=== PATIENT | female | born 1970 | race Caucasian/White ===

== ENCOUNTER 2018-04-17 06:56 | Inpatient (IN) | payer OTHER ==
[~2018-04-17] VITALS: Ht 160 cm; Wt 113.4 kg
[2018-04-17 01:50] VITALS: BP_SYST 140
[2018-04-17 07:03] VITALS: BP_SYST 210
[2018-04-17] MEDS ORDERED: NACL 0.9% 1,000 ML IV ONE ×2 (07:13→08:45)
[2018-04-17] MEDS ORDERED: ONDANSETRON HCL 4 MG/2 ML VIAL IVP ONE (07:15)
[2018-04-17] MEDS ORDERED: KETOROLAC TROMETHAMINE 30 MG VIAL IVP ONE (07:15)
[2018-04-17 08:03] LABS: HEMOGLOBIN 10.4 g/dL (12.0-16.0)
[2018-04-17 08:05] LABS: BASOPHILS # (AUTO) 0.3 K/uL (0.0-0.2); BASOPHILS % (AUTO) 1.9 % (0.0-2.0); EOSINOPHILS % (AUTO) 0.2 % (0.0-4.0); HEMATOCRIT 35.4 % (36-48); LYMPHOCYTES # (AUTO) 1.2 K/uL (1.0-5.5); LYMPHOCYTES % (AUTO) 6.6 % (20.5-51.5); MEAN CORPUSCULAR HEMOGLOBIN 19 pg (27-31); MEAN CORPUSCULAR HGB CONC 29 % (32-36); MEAN CORPUSCULAR VOLUME 64 fL (79.0-98.0); MONOCYTES # (AUTO) 0.9 K/uL (0.0-1.0); MONOCYTES % (AUTO) 5.2 % (1.7-9.3); NEUTROPHILS # (AUTO) 15.6 K/uL (1.8-7.7); NEUTROPHILS % (AUTO) 86.1 % (40.0-70.0); PLATELET COUNT (AUTO) 435 K/uL (130-430); RED BLOOD CELL COUNT(AUTO) 5.49 MIL/uL (4.2-6.2); RED CELL DISTRIBUTION WIDTH 17.7 % (9.0-15.0)
[2018-04-17 08:13] LABS: BARBITURATE, URINE NEGATIVE (NEG <=200); BENZODIAZEPINE, URINE NEGATIVE (NEG <=150); CANNABINOID, URINE NEGATIVE (NEG <=50); COCAINE, URINE NEGATIVE (NEG <=150); METHAMPHETAMINES SCREEN,URINE NEGATIVE (NEG <=500); OPIATE, URINE NEGATIVE (NEG <=100); PHENCYCLIDINE SCREEN,URINE NEGATIVE (NEG <=25); UR TRICYCLIC ANTIDEPRESSANTS NEGATIVE (NEG <=300); URINE AMPHETAMINE NEGATIVE (NEG <=500); URINE METHADONE NEGATIVE (NEG <=200); URINE OXYCODONE SCREEN NEGATIVE (NEG <=100); URINE PROPOXYPHENE SCREEN NEGATIVE (NEG <=300)
[2018-04-17 08:17] LABS: CALCIUM 8.8 mg/dL (8.4-11.0); CREATININE 0.92 mg/dL (0.55-1.30); POTASSIUM 3.8 mmol/L (3.5-5.1)
[2018-04-17 08:22] LABS: ALBUMIN 3.5 g/dL (3.4-4.8); TOTAL BILIRUBIN 0.7 mg/dL (0.0-1.0)
[2018-04-17] MEDS ORDERED: GLUC100017 PO (08:39)
[2018-04-17] MEDS ORDERED: cefTRIAXone 1 GM IVPB PREMIX 50 ML IV ONE (08:45)
[2018-04-17 08:48] LABS: BILIRUBIN,URINE NEGATIVE (NEGATIVE); CLARITY/URINE CLEAR (CLEAR); COLOR,URINE YELLOW (YELLOW); GLUCOSE,URINE NEGATIVE (NEGATIVE); KETONES,URINE NEGATIVE (NEGATIVE); LEUKOCYTE ESTERASE ,URINE TRACE (NEGATIVE); NITRITE, URINE NEGATIVE (NEGATIVE); PROTEIN URINE 1+ (NEGATIVE); UROBILINOGEN,URINE 0.2 (0.2-1.0)
[2018-04-17 08:49] LABS: BLOOD, URINE TRACE (NEGATIVE)
[2018-04-17 08:53] LABS: INR 1.1 (0.8-1.2); PROTHROMBIN TIME 11.5 SECS (9.5-12.5)
[2018-04-17 08:55] LABS: BACTERIA,URINE FEW /HPF (None Seen); MUCUS,URINE 1+ /LPF (None Seen)
[2018-04-17] MEDS ORDERED: ONDANSETRON HCL 4 MG/2 ML VIAL IVP PRN (10:15)
[2018-04-17 10:46] VITALS: BP_SYST 147
[2018-04-17 12:19] VITALS: BP_SYST 130
[2018-04-17 15:26] VITALS: BP_SYST 148
[2018-04-17 19:45] VITALS: BP_SYST 154
[2018-04-17] MEDS ORDERED: ENALAPRILAT DIHYDRATE 1.25 MG/ML VIAL IVP PRN (21:45)
[2018-04-17] MEDS ORDERED: PIPERACILLIN/TAZOBACTAM 4.5 GM/VIAL (ZOSYN) IV ONE (22:17)
[2018-04-17] MEDS: NACL 0.9% 1,000 ML IV SCH (22:27)
[2018-04-17] MEDS: PIPERACILLIN/TAZO 4.5GM/DEX-IS 100 ML IV SCH (22:35)
[2018-04-18] MEDS: ACETAMINOPHEN 325 MG TABLET PO PRN ×3 (01:50→21:03)
[2018-04-18 01:51] VITALS: BP_SYST 140
[2018-04-18] MEDS: PIPERACILLIN/TAZO 4.5GM/DEX-IS 100 ML IV SCH ×4 (04:19→21:03)
[2018-04-18 05:38] LABS: MEAN CORPUSCULAR HEMOGLOBIN 20 pg (27-31); MEAN CORPUSCULAR HGB CONC 31 % (32-36); MEAN CORPUSCULAR VOLUME 65 fL (79.0-98.0); PLATELET COUNT (AUTO) 330 K/uL (130-430); RED BLOOD CELL COUNT(AUTO) 4.45 MIL/uL (4.2-6.2); RED CELL DISTRIBUTION WIDTH 18.1 % (9.0-15.0)
[2018-04-18 06:05] LABS: ALBUMIN 2.5 g/dL (3.4-4.8); CREATININE 1.06 mg/dL (0.55-1.30); POTASSIUM 3.8 mmol/L (3.5-5.1)
[2018-04-18 06:52] LABS: CALCIUM 8.2 mg/dL (8.4-11.0)
[2018-04-18] MEDS: NACL 0.9% 1,000 ML IV SCH ×2 (06:58→17:56)
[2018-04-18 08:00] VITALS: BP_SYST 126
[2018-04-18] MEDS: PANTOPRAZOLE SODIUM 40 MG/VIAL (PROTONIX) IVP SCH (09:19)
[2018-04-18 11:18] LABS: BASOPHILS % (MANUAL) 0 % (0-2); EOSINOPHILS % (MANUAL) 0 % (0-7); LYMPHOCYTES % (MANUAL) 6 % (20-46); MONOCYTES % (MANUAL) 5 % (0-11)
[2018-04-18 11:25] VITALS: BP_SYST 135
[2018-04-18 15:25] VITALS: BP_SYST 126
[2018-04-18 20:00] VITALS: BP_SYST 141
[2018-04-19 00:56] VITALS: BP_SYST 127
[2018-04-19] MEDS: PIPERACILLIN/TAZO 4.5GM/DEX-IS 100 ML IV SCH ×4 (03:09→21:12)
[2018-04-19] MEDS: MORPHINE 2 MG/ML INJ. SYRINGE IVP PRN (03:14)
[2018-04-19] MEDS: NACL 0.9% 1,000 ML IV SCH ×3 (05:03→23:45)
[2018-04-19 06:54] LABS: BASOPHILS % (AUTO) 0.1 % (0.0-2.0); EOSINOPHILS # (AUTO) 0.1 K/uL (0.0-0.4); EOSINOPHILS % (AUTO) 0.7 % (0.0-4.0); HEMATOCRIT 26.8 % (36-48); HEMOGLOBIN 8.2 g/dL (12.0-16.0); LYMPHOCYTES # (AUTO) 1.2 K/uL (1.0-5.5); LYMPHOCYTES % (AUTO) 6.2 % (20.5-51.5); MEAN CORPUSCULAR HEMOGLOBIN 20 pg (27-31); MEAN CORPUSCULAR HGB CONC 31 % (32-36); MEAN CORPUSCULAR VOLUME 65 fL (79.0-98.0); MONOCYTES # (AUTO) 0.7 K/uL (0.0-1.0); MONOCYTES % (AUTO) 3.6 % (1.7-9.3); NEUTROPHILS # (AUTO) 17.1 K/uL (1.8-7.7); NEUTROPHILS % (AUTO) 89.4 % (40.0-70.0); PLATELET COUNT (AUTO) 270 K/uL (130-430); RED BLOOD CELL COUNT(AUTO) 4.11 MIL/uL (4.2-6.2); WHITE BLOOD COUNT (AUTO) 19.1 K/uL (4.8-10.8)
[2018-04-19 07:03] LABS: CALCIUM 8.1 mg/dL (8.4-11.0); CREATININE 0.77 mg/dL (0.55-1.30); POTASSIUM 3.2 mmol/L (3.5-5.1)
[2018-04-19 07:09] LABS: TOTAL IRON BIND. CAPACITY 205 ug/dL (250-450)
[2018-04-19 07:14] LABS: ALBUMIN 2.2 g/dL (3.4-4.8); TOTAL BILIRUBIN 0.7 mg/dL (0.0-1.0)
[2018-04-19 08:00] VITALS: BP_SYST 136
[2018-04-19] MEDS: PANTOPRAZOLE SODIUM 40 MG/VIAL (PROTONIX) IVP SCH (09:17)
[2018-04-19 11:06] VITALS: BP_SYST 127
[2018-04-19] MEDS ORDERED: fentaNYL CITRATE/PF 100 MCG/2 ML AMP IVP PRN ×2 (14:15)
[2018-04-19] MEDS ORDERED: ONDANSETRON HCL 4 MG/2 ML VIAL IVP PRN (14:15)
[2018-04-19] MEDS ORDERED: MIDAZOLAM HCL 5 MG/ML VIAL (VERSED) IV ONE (15:40)
[2018-04-19] MEDS ORDERED: SEVOFLURANE 15 MIN GAS INH ONE (15:40)
[2018-04-19] MEDS ORDERED: NS 1000 ML IV.SOLN IV ONE (15:40)
[2018-04-19] MEDS ORDERED: GLYCOPYRROLATE 0.2 MG/ML VIAL ONE (15:40)
[2018-04-19] MEDS ORDERED: NS IRRIG SOLN 1000 ML IR ONE (15:40)
[2018-04-19] MEDS ORDERED: ROCURONIUM BROMIDE 10 MG/ML (ZEMURON) ONE (15:40)
[2018-04-19] MEDS ORDERED: ONDANSETRON HCL 4 MG/2 ML VIAL ONE (15:40)
[2018-04-19] MEDS ORDERED: BUPIVACAINE /EPINEPHRINE/PF 0.5% 30 ML VIAL INJ ONE (15:40)
[2018-04-19] MEDS ORDERED: BUPIVACAINE /PF 0.5% 30 ML VIAL ONE (15:40)
[2018-04-19] MEDS ORDERED: fentaNYL CITRATE 250 MCG/5 ML AMP ONE (15:40)
[2018-04-19] MEDS ORDERED: LIDOCAINE 2%, 20 ML MDV ONE (15:40)
[2018-04-19] MEDS ORDERED: NEOSTIGMINE METHYLSULFATE 1 MG/ML, 10 ML VIAL ONE (15:40)
[2018-04-19] MEDS ORDERED: PROPOFOL 200MG/ 20ML VIAL (DIPRIVAN) IV ONE (15:40)
[2018-04-19 16:45] VITALS: BP_SYST 127
[2018-04-19 18:16] VITALS: BP_SYST 127
[2018-04-19 20:00] VITALS: BP_SYST 122
[2018-04-20] MEDS: MORPHINE 2 MG/ML INJ. SYRINGE IVP PRN (00:01)
[2018-04-20 01:28] VITALS: BP_SYST 139
[2018-04-20] MEDS: PIPERACILLIN/TAZO 4.5GM/DEX-IS 100 ML IV SCH ×4 (03:01→23:32)
[2018-04-20] MEDS: NACL 0.9% 1,000 ML IV SCH ×2 (04:15→20:39)
[2018-04-20 06:52] LABS: BASOPHILS % (AUTO) 0.1 % (0.0-2.0); EOSINOPHILS % (AUTO) 0.2 % (0.0-4.0); HEMATOCRIT 24.9 % (36-48); HEMOGLOBIN 7.6 g/dL (12.0-16.0); LYMPHOCYTES # (AUTO) 0.8 K/uL (1.0-5.5); LYMPHOCYTES % (AUTO) 7.3 % (20.5-51.5); MEAN CORPUSCULAR HEMOGLOBIN 19 pg (27-31); MEAN CORPUSCULAR HGB CONC 30 % (32-36); MEAN CORPUSCULAR VOLUME 63 fL (79.0-98.0); MONOCYTES # (AUTO) 0.6 K/uL (0.0-1.0); MONOCYTES % (AUTO) 5.7 % (1.7-9.3); NEUTROPHILS % (AUTO) 86.7 % (40.0-70.0); PLATELET COUNT (AUTO) 278 K/uL (130-430); RED BLOOD CELL COUNT(AUTO) 3.94 MIL/uL (4.2-6.2); RED CELL DISTRIBUTION WIDTH 17.8 % (9.0-15.0); WHITE BLOOD COUNT (AUTO) 11.4 K/uL (4.8-10.8)
[2018-04-20 06:54] LABS: CREATININE 0.96 mg/dL (0.55-1.30); POTASSIUM 3.2 mmol/L (3.5-5.1); TOTAL BILIRUBIN 0.7 mg/dL (0.0-1.0)
[2018-04-20 08:00] VITALS: BP_SYST 132
[2018-04-20] MEDS ORDERED: POTASSIUM CHLORIDE 30 MEQ in NS 250 ML IV ONE (09:15)
[2018-04-20] MEDS: PANTOPRAZOLE SODIUM 40 MG/VIAL (PROTONIX) IVP SCH (09:37)
[2018-04-20 19:55] VITALS: BP_SYST 122
[2018-04-21] MEDS: MORPHINE 2 MG/ML INJ. SYRINGE IVP PRN (00:41)
[2018-04-21 01:00] VITALS: BP_SYST 114
[2018-04-21] MEDS: PIPERACILLIN/TAZO 4.5GM/DEX-IS 100 ML IV SCH ×2 (05:27→09:27)
[2018-04-21] MEDS: NACL 0.9% 1,000 ML IV SCH (05:28)
[2018-04-21 08:31] VITALS: BP_SYST 151
[2018-04-21] MEDS: PANTOPRAZOLE SODIUM 40 MG/VIAL (PROTONIX) IVP SCH (09:27)
[2018-04-21] MEDS ORDERED: LEVO250T2 PO (11:20)
[2018-04-21] MEDS ORDERED: METR500T PO (11:20)
[2018-04-21 11:46] VITALS: BP_SYST 140
[2018-04-21 12:00] VITALS: BP_SYST 140
== END 2018-04-21 14:10 | disposition home or self-care (01) | DRG 854 ==
LOC: SED 06:56 → SMU 10:04
PROVIDERS: ADMIT Internal Medicine; ATTEND Internal Medicine
PROC: 0FT44ZZ Resection of Gallbladder, Percutaneous Endoscopic Approach (ICD-10-PCS; principal; 2018-04-19 13:00)
DX: A41.9 Sepsis, unspecified organism (principal); Z68.41 Body mass index [BMI] 40.0-44.9, adult; K80.00 Calculus of gallbladder with acute cholecystitis without obstruction; K82.A1 Gangrene of gallbladder in cholecystitis; D50.9 Iron deficiency anemia, unspecified; M19.90 Unspecified osteoarthritis, unspecified site; E66.01 Morbid (severe) obesity due to excess calories; Z79.899 Other long term (current) drug therapy; Z98.891 History of uterine scar from previous surgery
CPT/HCPCS: 36415; 71045; 78226; 80053; 80307; 81000-TC; 83540-TC; 83550-TC; 83605; 83690-TC; 84702-TC; 84703; 85007; 85025; 85027; 85610-TC; 86886; 86900; 86901; 87040-TC; 87081; 87086; 88304; 93005; 94010; 96361; 96365; 96375; 99285; A9537; C1727; C9113; J0696; J1885; J2001; J2250; J2270; J2405; J2543; J2704; J2710; J3010; J3480; J3490; J7030; J7050